=== PATIENT | female | born 1960 | race Hispanic/Latino ===

== ENCOUNTER 2017-11-26 09:06 | Outpatient (CLI) | payer OTHER ==
[2017-11-26] MEDS ORDERED: ISOVUE-370 76%-LOCM 1 ML ONE (15:16)
== END 2017-11-26 09:07 | disposition home or self-care (01) ==
LOC: BICCT 09:06
PROVIDERS: ATTEND Internal Medicine Gastroenterology
DX: R93.8 Abnormal findings on diagnostic imaging of other specified body structures (principal)
CPT/HCPCS: 74160

== ENCOUNTER 2019-07-12 11:01 | Outpatient (CLI) | payer OTHER ==
--- NOTE | 2019-07-12 11:51 | ULT ---
Gallbladder ultrasound: Multiple grayscale images of right upper quadrant obtained according to protocol. INDICATION: Pain FINDINGS: Liver: Hepatic steatosis. Gallbladder: Normal Gallbladder wall: Normal. De Santiago's Sign: Negative Common bile duct is normal. Ascites: None IMPRESSION: Hepatic steatosis.
== END 2019-07-12 11:02 | disposition home or self-care (01) ==
LOC: BICULT 11:01
PROVIDERS: ATTEND Internal Medicine
DX: R94.5 Abnormal results of liver function studies (principal); K76.0 Fatty (change of) liver, not elsewhere classified
CPT/HCPCS: 76705

== ENCOUNTER 2019-08-25 07:34 | Outpatient (CLI) | payer OTHER ==
--- NOTE | 2019-08-25 09:33 | MRI ---
BRAIN MRI WITH AND WITHOUT CONTRAST: HISTORY: Facial spasm. Facial twitching and eye pain, x1 year. Worsening symptoms. COMPARISON: None. FINDINGS: Gradient echo sequence: No hemorrhage. Calvarium: Appropriate T1 marrow signal intensity. Midline brain parenchyma: Unremarkable. Cerebrum:No parenchymal mass, mass effect or midline shift. Age-appropriate brain volume. Cortical gr ay-white matter differentiation is preserved. Ventricles: No evidence of hydrocephalus. Sinuses and mastoid air cells: Adequate aeration. Diffusion: Central arterial flow is maintained. Absent restricted diffusion. Postcontrast images: No pathologic enhancement of the brain parenchyma. Cranial nerves: Appropriate and symmetric signal intensity of the 5th cranial nerves, 7th and 8th cranial nerves. The re is no evidence of abnormal enhancement. Bilateral Meckel's caves have symmetric signal intensity. The visualized facial and upper neck soft tissues have appropriate signal intensity. Grossly no mucos al abnormality. Optic chiasm and prechiasmatic optic nerves are unremarkable. Partially empty sella is noted. Midline pituitary stalk. Visualized globes are intact. Appropriate location of bilateral ocular lenses. Appropriate signal int ensity of the intraorbital optic nerve and ocular rectus muscle. IMPRESSION: 1. Unremarkable pre and postcontrast brain MRI. 2. Appropriate and essentially symmetric signal intensity of the cranial nerves as described above. N o abnormal signal intensity in Meckel's cave. Transcribed Date/Time: 08/25/2019 9:39 AM
[2019-08-25] MEDS ORDERED: Magnevist 469MG/ML 20 ML VIAL ONE (13:01)
== END 2019-08-25 07:35 | disposition home or self-care (01) ==
LOC: BICMRI 07:34
PROVIDERS: ATTEND Nurse Practitioner Acute Care
DX: G51.39 Clonic hemifacial spasm, unspecified (principal); R90.89 Other abnormal findings on diagnostic imaging of central nervous system
CPT/HCPCS: 70553; A9579

== ENCOUNTER 2020-03-24 14:03 | Outpatient (CLI) | payer OTHER ==
--- NOTE | 2020-03-24 14:40 | MMO ---
Bilateral MAMMO Bilat Screen [facility]. CLINICAL HISTORY: Patient is 59 years old and is seen for screening. The patient has no family history of breast cancer. The patient has no personal history of cancer. VIEWS: The views performed were: bilateral craniocaudal with tomosynthesis and bilateral mediolateral oblique with tomosynthesis. This study has been interpreted with the assistance of computer-aided detection. MAMMOGRAM FINDINGS: There are scattered fibroglandular densities. There are vascular calcifications seen in both breasts. There are no suspicious masses, suspicious calcifications, or new areas of architectural distortion. IMPRESSION: A ROUTINE FOLLOW-UP MAMMOGRAM IN 1 YEAR IS RECOMMENDED. THE RESULTS OF THIS EXAM WERE SENT TO THE PATIENT. ACR BI-RADS Category 2 - Benign finding MAMMOGRAPHY NOTE: 1. A negative mammogram report should not delay a biopsy if a dominant of clinically suspicious mass is present. 2. Approximately 10% to 15% of breast cancers are not detected by mammography. 3. Adenosis and dense breasts may obscure an underlying neoplasm. Reported by: ALEXIS AVERY MD Electonically Signed: [id number]
== END 2020-03-24 14:04 | disposition home or self-care (01) ==
LOC: BICMAMMO 14:03
PROVIDERS: ATTEND Family Medicine
DX: Z12.31 Encounter for screening mammogram for malignant neoplasm of breast (principal)
CPT/HCPCS: 77063; 77067

== ENCOUNTER 2022-11-01 08:27 | Outpatient (CLI) | payer OTHER | END 2022-11-01 08:28 | disposition home or self-care (01) | LOC: BICRAD 08:27 | PROVIDERS: ATTEND Family Medicine | DX: M95.8 Other specified acquired deformities of musculoskeletal system (principal); S43.211A Anterior subluxation of right sternoclavicular joint, initial encounter ==

== ENCOUNTER 2023-07-02 14:09 | Outpatient (CLI) | payer OTHER | END 2023-07-02 14:10 | disposition home or self-care (01) | LOC: BICRAD 14:09 | PROVIDERS: ATTEND Family Medicine | DX: J22 Unspecified acute lower respiratory infection (principal) | CPT/HCPCS: 71046 ==

== ENCOUNTER 2025-01-19 15:51 | Outpatient (CLI) | payer OTHER | END 2025-01-19 15:52 | disposition home or self-care (01) | LOC: BICRAD 15:51 | PROVIDERS: ATTEND Family Medicine | DX: M51.360 Other intervertebral disc degeneration, lumbar region with discogenic back pain only (principal); M51.370 Other intervertebral disc degeneration, lumbosacral region with discogenic back pain only; M54.9 Dorsalgia, unspecified; M46.04 Spinal enthesopathy, thoracic region; M43.16 Spondylolisthesis, lumbar region; M47.816 Spondylosis without myelopathy or radiculopathy, lumbar region | CPT/HCPCS: 72070; 72100 ==